=== PATIENT | male | born 1950 | race Caucasian/White ===

== ENCOUNTER → 2017-02-24 12:54 | Outpatient (CLI) | payer MEDICARE, OTHER | END | disposition home or self-care (01) | LOC: D.CT 12:54 | DX: R20.2 Paresthesia of skin (principal) ==

== ENCOUNTER 2019-12-17 07:12 | Day surgery (SDC) | payer MEDICARE, BC ==
[~2019-12-17] VITALS: Ht 180.3 cm; Wt 88.2 kg
[2019-12-17 07:48] LABS: BASOPHILS 0.8 % (0-2); EOSINOPHILS 8.6 % (0-7); HEMATOCRIT 45.5 % (42.0-54.0); HEMOGLOBIN 15.2 g/dL (13.5-17.5); IMMATURE GRANULOCYTES 0.2 % (0-5); LYMPHOCYTES 22.8 % (15-50); MCH 30.4 pg (26.0-34.0); MCHC 33.4 g/dL (31.0-37.0); MEAN PLATELET VOLUME 8.8 fL (7.4-10.4); MONOCYTES 5.8 % (2-11); NEUTROPHILS 61.8 % (40-80); PLATELET COUNT 190 10x3/uL (130-400); RDW 13.6 % (11.5-14.5); WBC 6.1 10x3/uL (4.8-10.8)
[2019-12-17] MEDS ORDERED: B12 (08:06)
[2019-12-17] MEDS ORDERED: LIPITOR80 MG (08:06)
[2019-12-17] MEDS ORDERED: ECOTRIN325 MG (08:08)
[2019-12-17] MEDS ORDERED: CARDIZEM30 MG PO (08:08)
[2019-12-17] MEDS ORDERED: GABAPENTIN300 MG PO (08:08)
[2019-12-17] MEDS ORDERED: NITROGLYCERIN (08:09)
[2019-12-17 08:40] VITALS: BP 127/67; Ht 180.3 cm; Wt 88.2 kg
--- NOTE | 2019-12-19 07:00 | OP ---
PATIENT NAME: YUE ESCAMILLA MEDICAL RECORD: [id number] :46 LOCATION:D.OPS ADMISSION DATE: SURGEON: ILIR MISTRY DO DATE OF OPERATION: 12/17/2019 PROCEDURE: Colonoscopy with polypectomy. INDICATIONS FOR PROCEDURE: Screening colonoscopy with a history of colon polyps and hemorrhoids. SCOPE: [employer] video pediatric colonoscope. MEDICATIONS: Propofol 450 mg IV per anesthesia. WITHDRAWAL TIME: 14 minutes. ESTIMATED BLOOD LOSS: Minimal. COMPLICATIONS: None. FINDINGS: Informed consent was given. The patient was made comfortable with the above medication. After reaching an adequate level of sedation by slow IV push, the patient was placed on his left side. A digital rectal examination was performed and was normal. The endoscope was then advanced under direct visualization through the rectum to the cecum, confirmed by the presence of the appendiceal orifice and ileocecal valve. The endoscope was slowly withdrawn and mucosa was carefully examined. The prep quality was fair with an extended amount of time required to clean the ascending colon adequately. There were 2 polyps visualized on today's examination. One was located in the descending colon. It was a benign appearing sessile polyp, which measured approximately 4-5 mm in diameter. It was removed using hot forceps. In the ascending colon, there was another benign appearing sessile polyp, which measured approximately 3 mm in diameter. It was removed using hot forceps. There was evidence of mild diverticulosis involving the sigmoid colon. Retroflexion was performed in the rectum with visualization of grade I internal hemorrhoids without bleeding. The endoscope was withdrawn from the patient. The patient tolerated the procedure well and there were no complications. IMPRESSION: 1. Two polyps as described above, removed using hot forceps. 2. Mild diverticulosis of the sigmoid colon. 3. Grade I internal hemorrhoids without bleeding. PLAN AND RECOMMENDATIONS: 1. Discharge home when recovery parameters are met. 2. Follow up biopsy specimen results. 3. High fiber diet. 4. Continue current medications. 5. Recall colonoscopy in 3 years. TRANSINT:[id number] Voice Confirmation ID: [id number] DOCUMENT ID: [id number] OPERATIVE REPORT [id number] YUE ESCAMILLA ILIR MISTRY DO at 0700 CC: [id number] DICTATION DATE: 12/17/19 1026 [employer] SPECIALIST: 12/17/19 [id number] [facility] [place] 12/17/19 [facility] [id number] [id number]
== END 2019-12-17 11:10 | disposition home or self-care (01) ==
LOC: D.OPS 07:12
PROVIDERS: Anesthesiology; ATTEND Internal Medicine Gastroenterology
DX: Z12.11 Encounter for screening for malignant neoplasm of colon (principal); Z86.010 Personal history of colon polyps; K63.5 Polyp of colon; K64.0 First degree hemorrhoids